=== PATIENT | female | born 1975 | race Asian ===

== ENCOUNTER 2017-04-13 10:11 | Inpatient (IN) | payer SELFPAY ==
[~2017-04-13] VITALS: Ht 167 cm; Wt 68.0 kg
[2017-04-13] MEDS ORDERED: OXYTOCIN 10 UNITS/ML VIAL IM PRN (10:30)
[2017-04-13] MEDS ORDERED: PROMETHAZINE 25 MG/ML VIAL IVP PRN (10:30)
[2017-04-13] MEDS ORDERED: NALBUPHINE 10 MG/ML AMP IVP PRN (10:30)
[2017-04-13] MEDS ORDERED: MISOPROSTOL 25 MCG TAB VG PRN (10:30)
[2017-04-13] MEDS ORDERED: LACTATED RINGERS 1,000 ML IV SCH (10:30)
[2017-04-13] MEDS ORDERED: PRENATAL VITAMI1 TA2 PO (10:30)
[2017-04-13] MEDS ORDERED: OXYTOCIN 20 UNITS/LR PREMIX 1,000 ML IV PRN (10:30)
[2017-04-13] MEDS ORDERED: METHYLERGONOVINE 0.2 MG/ML AMP IM SCH (10:39)
[2017-04-13] MEDS ORDERED: MISOPROSTOL 25 MCG TAB ONE ×2 (10:47→14:53)
[2017-04-13 11:20] VITALS: BP 116/57
[2017-04-13] MEDS ORDERED: ROPIVACAINE 0.2%/NS PREMIX 250 ML EPI ONE (16:55)
[2017-04-13] MEDS ORDERED: ROPIVACAINE 0.2%/NS PREMIX 250 ML EPI SCH (17:05)
[2017-04-13] MEDS ORDERED: OXYTOCIN 20 UNITS/LR PREMIX 1,000 ML IV ONE (19:40)
[2017-04-14] MEDS ORDERED: OXYTOCIN 10 UNITS/ML VIAL ONE (01:53)
[2017-04-14] MEDS ORDERED: MEASLES, MUMPS, AND RUBELLA 1 VIAL SQVAC PRN (04:35)
[2017-04-14] MEDS ORDERED: BENZOCAINE/MENTHOL 20%-0.5% 60 GM CAN TP PRN (04:35)
[2017-04-14] MEDS ORDERED: oxyCODONE/APAP 5/325 MG 1 TAB TAB PO PRN (04:35)
[2017-04-14] MEDS ORDERED: TEMAZEPAM 15 MG CAP PO PRN (04:35)
[2017-04-14] MEDS ORDERED: WITCH HAZEL 40 PAD PACKAGE TP PRN (04:35)
[2017-04-14] MEDS ORDERED: IBUPROFEN 800 MG TAB PO PRN (04:35)
[2017-04-14] MEDS ORDERED: METHYLERGONOVINE 0.2 MG/ML AMP IM PRN (04:35)
[2017-04-14] MEDS ORDERED: OXYTOCIN 10 UNITS/ML VIAL IM PRN (04:35)
[2017-04-14] MEDS: HYDROcodone/APAP 5/325 MG 1 TAB TAB PO PRN ×3 (04:54→18:36)
[2017-04-14] MEDS ORDERED: HYDROcodone/APAP 5/325 MG 1 TAB TAB ONE (04:58)
[2017-04-14] MEDS ORDERED: DOCUSATE SOD/SENNA 50/8.6 MG 1 TAB PO SCH (21:00)
[2017-04-15] MEDS: HYDROcodone/APAP 5/325 MG 1 TAB TAB PO PRN ×2 (03:31→13:01)
[2017-04-15] MEDS ORDERED: FERROUS SULFATE 325 MG TABEC PO SCH (12:00)
--- NOTE | 2017-04-15 12:23 | NUR ---
PATIENT HAS BEEN SCREENED AND CATEGORIZED LOW NUTRITION RISK. PATIENT WILL BE SEEN WITHIN 7 DAYS OF ADMISSION. 04/20/17 CARLY COOPER MBA, RD
== END 2017-04-15 15:10 | disposition home or self-care (01) | DRG 775 ==
LOC: MLD 10:11 → MFCC 10:22
PROVIDERS: ADMIT Obstetrics & Gynecology; ATTEND Obstetrics & Gynecology
PROC: 10E0XZZ Delivery of Products of Conception, External Approach (ICD-10-PCS; principal; 2017-04-13)
PROC: 0KQM0ZZ Repair Perineum Muscle, Open Approach (ICD-10-PCS; 2017-04-13)
PROC: 10907ZC Drainage of Amniotic Fluid, Therapeutic from Products of Conception, Via Natural or Artificial Opening (ICD-10-PCS; 2017-04-13)
PROC: 3E0P7GC Introduction of Other Therapeutic Substance into Female Reproductive, Via Natural or Artificial Opening (ICD-10-PCS; 2017-04-13)
PROC: 3E0S3CZ (ICD-10-PCS; 2017-04-13)
PROC: 00HU33Z Insertion of Infusion Device into Spinal Canal, Percutaneous Approach (ICD-10-PCS; 2017-04-13)
DX: O70.1 Second degree perineal laceration during delivery (principal); Z37.0 Single live birth; Z3A.39 39 weeks gestation of pregnancy; O09.523 Supervision of elderly multigravida, third trimester; Z28.21 Immunization not carried out because of patient refusal